=== PATIENT | male | born 1995 | race Caucasian/White ===

== ENCOUNTER 2018-02-28 18:22 | Emergency (ER) | payer BC ==
[~2018-02-28] VITALS: Ht 180.3 cm; Wt 80.2 kg
[2018-02-28 18:24] VITALS: BP 127/59
== END 2018-02-28 19:42 | disposition home or self-care (01) ==
LOC: ER 18:23
DX: S92.901A Unspecified fracture of right foot, initial encounter for closed fracture (principal); Z56.0 Unemployment, unspecified; W13.8XXA Fall from, out of or through other building or structure, initial encounter; Y93.89 Activity, other specified; Y92.89 Other specified places as the place of occurrence of the external cause; Y99.8 Other external cause status
CPT/HCPCS: 29515; 73610; 73630; 99284; A6449